=== PATIENT | male | born 1955 | race Caucasian/White ===

== ENCOUNTER 2025-04-30 02:25 | Emergency (ER) | payer MEDICARE, OTHER ==
[~2025-04-30] VITALS: Ht 175.3 cm; Wt 80.0 kg
[2025-04-30 02:26] VITALS: TEMP 97
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
[2025-04-30 03:00] LABS: MEAN PLATELET VOLUME 6.9 FL (7.4-10.4); RED CELL DISTRIBUTION WIDTH 13.3 % (11.5-14.5)
--- NOTE | 2025-04-30 03:01 | ELECTROCARDIOGRAPH REPORT ---
[facility] Test Date: 2025-04-30 Test Time: 02:58:59 Pat Name: NATAN DELGADO Department: [facility] Patient ID: [id number] Room: Gender: M [employer] Fin[employer]: : 1955 Requested By: RIGOBERTO LUNA Order Number: [id number] Reading MD: Measurements Intervals [place] Rate: 88 P: 45 LA: 170 QRS: -76 QRSD: 90 T: 17 QT: 376 QTc: 455 Interpretive Statements Sinus rhythm Inferior infarct, old Anterior infarct, old Baseline wander in lead(s) V1 Please click the below link to view image of tracing.
[2025-04-30 03:23] LABS: CREATININE 1.10 MG/DL (0.60-1.10); PRO BRAIN NATRIURETIC PEPTIDE 124 PG/ML (0-125); TOTAL CARBON DIOXIDE 29.1 MMOL/L (24-32); eCRCL 62 ML/MIN; eGFR 66 ML/MIN
--- NOTE | 2025-04-30 03:23 | RADIOLOGY REPORT ---
CHEST RADIOGRAPH Indication: CP Technique: Single frontal view of the chest was obtained COMPARISON: None FINDINGS: Lines and Tubes: None Lungs: Clear Pleura: No effusion. No pneumothorax. Cardiomediastinal contours: Unremarkable status post median sternotomy. Bones: Unremarkable. ACDF hardware. IMPRESSION: 1. No radiographic evidence of acute cardiopulmonary abnormality.
[2025-04-30 04:34] VITALS: BP 151/81; PULSE 77; RESP 15; O2SAT 97
--- NOTE | 2025-04-30 04:49 | RADIOLOGY REPORT ---
CTA Chest with intravenous contrast INDICATION: cp COMPARISON: None TECHNIQUE: Multidetector spiral CTA of the chest was performed of the chest with intravenous contrast. PULMONARY ANGIOGRAPHY PROTOCOL was utilized using a bolus- tracking technique centered on the main pulmonary artery. Axial, coronal and sagittal multiplanar and MIP reformats were performed. Radiation Dose : 1. Chest: CTDI volume is 24.66 mGy. Dose-length product is 938.06 mGy*cm The dose indicators for CT are the volume Computed Tomography (CT) Dose Index (CTDIvol) and the Dose Length Product (DLP), and are measured in units of mGy and mGy-cm, respectively. These indicators are not patient dose, but values generated from the CT scanner acquisition factors. The report includes radiation exposure data for exposures received during this examination. Findings: Pulmonary artery: No pulmonary embolism. Lower neck: Normal thyroid. Lungs: No focal consolidation, pleural effusion or pneumothorax. Heart/Vascular Structures: Normal heart size status post median sternotomy. No pericardial effusion. Atherosclerotic vascular calcifications. Lymph Nodes: No adenopathy Musculoskeletal: No acute osseous abnormality. Soft tissues: Normal. Upper abdomen: Limited portions of the upper abdomen are unremarkable status post cholecystectomy. IMPRESSION: 1. No pulmonary embolism. 2. No acute thoracic finding.
== END 2025-04-30 05:13 | disposition home or self-care (01) ==
LOC: ER 02:26
DX: M94.0 Chondrocostal junction syndrome [Tietze] (principal); I25.2 Old myocardial infarction; Z91.040 Latex allergy status
CPT/HCPCS: 36415; 71045; 71275; 80048; 83735; 83880; 84484; 85025; 93005; 99285; Q9967